=== PATIENT | male | born 1990 | race African-American/Black ===

== ENCOUNTER 2022-12-14 22:10 | Outpatient (CLI) | payer SELFPAY ==
[2022-12-15 10:53] LABS: HBs Antibody, Quant 800.3 mIU/mL (See Note); Hepatitis B Surface Ab Positive (See Note)
[2022-12-15 11:10] LABS: Varicella IgG Antibody Positive (See Note)
[2022-12-15 11:17] LABS: Measles IgG Antibody Positive (See Note); Mumps Antibody IgG Positive (See Note); Syphilis Serology (RPR) Negative (Negative)
[2022-12-16 11:42] LABS: TB Interpretation Negative (Negative)
== END 2022-12-14 22:11 | disposition home or self-care (01) ==
LOC: LBO 22:11
PROVIDERS: Visit Provider Family Medicine
DX: Z11.1 Encounter for screening for respiratory tuberculosis (principal); Z11.59 Encounter for screening for other viral diseases
CPT/HCPCS: 36415; 86706; 86787; 86480; 86592; 86735; 86765

== ENCOUNTER 2022-12-30 02:20 | Outpatient (CLI) | payer SELFPAY ==
[2022-12-31 10:03] LABS: Rubella IgG Ab (UVM) Positive (See Note)
== END 2022-12-30 02:21 | disposition home or self-care (01) ==
LOC: LBO 02:21
PROVIDERS: Visit Provider Family Medicine
DX: Z11.1 Encounter for screening for respiratory tuberculosis (principal); Z11.59 Encounter for screening for other viral diseases
CPT/HCPCS: 86762